=== PATIENT | female | born 1970 | race Caucasian/White ===

== ENCOUNTER 2022-12-20 08:50 | Outpatient (CLI) | payer OTHER, SELFPAY ==
--- NOTE | ~2022-12-20 | MMUS_ITS ---
EXAMINATION: MM diagnostic antonino BI w vania, US breast RT complete HISTORY: Right breast lump for 6 to 8 months TECHNIQUE: ML, MLO and CC 3-D tomosynthesis images of both breasts were performed and synthetic 2-D i mages were generated. CAD analysis was submitted and interpreted. High resolution right complete nicole st ultrasound examination including all 4 quadrants and subareolar area was performed. COMPARISON: None BREAST PARENCHYMAL COMPOSITION: There are scattered areas of fibroglandular density. FINDINGS: MAMMOGRAPHIC FINDINGS: There is an approximately 3 cm high density irregular spiculated mass in the posterior upper outer ri ght breast, highly suggestive of malignancy. There appears to be an adjacent 9 mm irregular mass sup eriorly on the MLO view, suggesting a possible satellite cancer. There is skin thickening of the right breast. No suspicious mass or architectural distortion, malignant calcification, skin thickening or retractio n of the left breast is detected. ULTRASOUND: There is an irregular poorly circumscribed markedly hypoechoic lesion with posterior shadowing at 11: 00 8 cm from nipple, measuring up to 3.5 cm dimension. This is highly suggestive of malignancy. IMPRESSION: 1. Approximately 3.5 cm spiculated high density mass in upper outer quadrant of right breast, highly suggestive of malignancy 2. Ultrasound-guided biopsy is recommended BI-RADS category 5, highly suggestive of malignancy. Reviewed, dictated and finalized at location A. IMPRESSION: 1. Approximately 3.5 cm spiculated high density mass in upper outer quadrant of right breast, highly suggestive of malignancy 2. Ultrasound-guided biopsy is recommended BI-RADS category 5, highly suggestive of malignancy.
== END 2022-12-20 08:51 ==
PROVIDERS: PCP Family Medicine; Visit Provider Family Medicine
DX: N63.10 Unspecified lump in the right breast, unspecified quadrant (principal); R92.8 Other abnormal and inconclusive findings on diagnostic imaging of breast
CPT/HCPCS: 76641; 77062; 77066; G0279